=== PATIENT | male | born 1945 | race Caucasian/White ===

== ENCOUNTER 2019-06-08 08:50 | Inpatient (IN) | payer MEDICARE ==
[~2019-06-08] VITALS: Ht 165.1 cm; Wt 114.4 kg
[2019-06-08] VITALS (9 sets, daily range): BP systolic 114–146; BP diastolic 51–66
[2019-06-08] MEDS ORDERED: ASPI81TA85 PO (09:10)
[2019-06-08] MEDS ORDERED: CHLO125TA PO (09:10)
[2019-06-08] MEDS ORDERED: METF500T4 PO (09:10)
[2019-06-08] MEDS ORDERED: CENT1TAB PO (09:10)
[2019-06-08] MEDS ORDERED: D200CAP3 PO (09:10)
[2019-06-08] MEDS ORDERED: OMEP10CASR PO (09:10)
[2019-06-08] MEDS ORDERED: ROSU40TA4 PO (09:10)
[2019-06-08] MEDS ORDERED: SPIR-10 PO (09:10)
[2019-06-08] MEDS ORDERED: IRON65TA2 PO (09:10)
[2019-06-08] MEDS ORDERED: VITA500C24 PO (09:10)
[2019-06-08] MEDS ORDERED: CARV6.25 PO (09:10)
[2019-06-08] MEDS ORDERED: COQ-100C5 PO (09:10)
[2019-06-08] MEDS ORDERED: LOSA100T50 PO (09:10)
--- NOTE | 2019-06-08 09:31 | REP ---
Clinical: Chest pain . Comparison: 04/26/2010 . Findings: The mediastinum and cardiac silhouette are stable and cardiomegaly along with prior sternotomy and CABG again noted. The lung herbert are clear without acute consolidation, effusion, or pneumothorax. Skeletal structures are intact. Impression: No acute cardiopulmonary process appreciated. Electronically Signed by Slick Pérez MD 06/08/2019 09:23 A
[2019-06-08 09:39] LABS: BASO % 0.3 % (0.0-1.0); EOS # 0.1 10^3/uL (0.0-0.5); HEMATOCRIT 41.8 % (42.0-52.0); HEMOGLOBIN 14.4 g/dl (13.5-17.5); LYMPH # 1.8 10^3/uL (1.5-5.0); LYMPH % 14.6 % (24.0-44.0); MEAN CORPUSCULAR HEMOGLOBIN 34.5 pg (27.0-33.0); MEAN CORPUSCULAR HGB CONC 34.4 g/dl (32.0-36.5); MEAN CORPUSCULAR VOLUME 100.2 fl (80.0-96.0); MONO # 0.8 10^3/uL (0.0-0.8); MONO % 6.8 % (0.0-5.0); NEUTROPHILS # 9.2 10^3/uL (1.5-8.5); PLATELET COUNT, AUTOMATED 179 10^3/uL (150-450); RED BLOOD COUNT 4.17 10^6/uL (4.30-6.10)
[2019-06-08 09:50] LABS: INR 1.05; PARTIAL THROMBOPLASTIN TIME 28.5 SECONDS (25.0-38.4); PROTHROMBIN TIME 13.4 SECONDS (11.8-14.0)
[2019-06-08] MEDS ORDERED: LANTINJ4 SC (10:00)
[2019-06-08] MEDS ORDERED: OMEP20CA4 PO (10:00)
[2019-06-08] MEDS ORDERED: INSUH10VL SC (10:00)
[2019-06-08] MEDS ORDERED: GLUCOSE 4 GM CHEW TABLET PO PRN (10:30)
[2019-06-08] MEDS ORDERED: GLUCAGON FOR INJ 1 MG VIAL (J1610) SC PRN (10:30)
[2019-06-08] MEDS ORDERED: DEXTROSE 50% 50 ML SYRINGE IV PRN (10:30)
[2019-06-08] MEDS ORDERED: HEPARIN SOD (PORCINE) 5000 UNITS/ML VIAL SC SCH (10:30)
[2019-06-08 10:32] LABS: ALBUMIN 3.4 GM/DL (3.2-5.2); ALT/SGPT 111 U/L (12-78); BILIRUBIN,DIRECT 0.5 MG/DL (0.0-0.2); BILIRUBIN,TOTAL 1.2 MG/DL (0.2-1.0); CK-MB VALUE MASS < 1.0 NG/ML (<3.6); CPK CREATINE PHOSPHOKINASE 56 U/L (39-308); FREE T4 1.12 NG/DL (0.76-1.46); LIPASE 56 U/L (73-393); MAGNESIUM LEVEL 2.1 MG/DL (1.8-2.4); TOTAL PROTEIN 6.5 GM/DL (6.4-8.2); TROPONIN I 0.02 NG/ML (< 0.10)
[2019-06-08] MEDS ORDERED: VANCOMYCIN 1000 MG/20 ML VIAL (J3370) As Ordered ONE ×2 (10:47→14:31)
[2019-06-08] MEDS ORDERED: VANCOMYCIN HCL 1,000 MG, VIAL MATE ADAPTER 1 EACH in D5W 250 ML IV ONE (11:00)
--- NOTE | 2019-06-08 11:26 | HPEPDOC ---
General Date of Admission Jun 08, 2019 at 10:23 Date of Service: Jun 08, 2019 Attending Physician: DENNIS FIERRO DO Chief Complaint The patient is a 74-year-old male admitted with a reason for visit of Third Degree Av Block. 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 Patient stated that 2 days ago he started feeling profound weakness, lightheadedness. He didn't have dizziness, chest pain, any muscle pain. In the emergency room patient was found to have bradycardia with heart rate of 30 and 3d degree heart block. Patient was consulted by woods manager, who planned emergent pacemaker placement. Home Medications Scheduled Ascorbic Acid (Vitamin C) 500 Mg Capsule, 500 MG PO QHS, (Reported) Aspirin (Aspir 81) 81 Mg Tablet.dr, 81 MG PO DAILY, (Reported) Carvedilol (Carvedilol) 6.25 Mg Tablet, 6.25 MG PO BID, (Reported) Chlorthalidone (Chlorthalidone) 25 Mg Tablet, 25 MG PO DAILY, (Reported) Cholecalciferol (Vitamin D3) (Vitamin D3) 2,000 Unit Capsule, 2,000 UNIT PO QHS, (Reported) Ferrous Sulfate (Iron) 325 Mg Tablet, 325 MG PO QHS, (Reported) Insulin Glargine,Hum.rec.anlog (Lantus Solostar) 100 Unit/1 Ml Insuln.pen, 78 UNITS SC DAILY, (Reported) Insulin Human Lispro (Novolog) 100 Unit/1 Ml Vial, 1 DOSE SC AC, (Reported) PER SLIDING SCALE Losartan Potassium (Losartan Potassium) 100 Mg Tablet, 100 MG PO QHS, (Reported) Metformin HCl (Metformin HCl ER) 500 Mg Tab.er.24h, 1,000 MG PO BIDWM, (Reported) Multivit-Min/FA/Lycopen/Lutein (Centrum Silver Tablet) 1 Each Tablet, 1 TAB PO BID, (Reported) Omeprazole (Omeprazole) 20 Mg Capsule.dr, 20 MG PO DAILY, (Reported) Rosuvastatin Calcium (Rosuvastatin Calcium) 40 Mg Tablet, 40 MG PO QHS, (Report ed) Spironolactone (Spironolactone) 25 Mg Tablet, 25 MG PO DAILY, (Reported) Ubidecarenone (Coq-10) 100 Mg Capsule, 100 MG PO DAILY, (Reported) Allergies Coded Allergies: Penicillins (Verified Allergy, Unknown, rash, 06/08/19) Past Medical History Medical History Right bundle-branch block, left fascicular block, CABG in 2008, hypertension, COPD, diabetes mellitus type 2 Surgical History CABG in 2008 Family History Father from pancreatic cancer, mother had COPD Social History * Smoker: former Smoker Alcohol: occationally Drugs: denies Psychosocial History: No pertinent psych hx A-FIB/CHADSVASC A-FIB History Current/History of A-Fib/PAF?: No Current PO Anticoag Therapy: No Review of Systems Constitutional: Reports: Weakness Eyes: Denies: Pain, Vision change ENT: Denies: Head Aches, Ear Pain, Dysphagia Skin: Denies: Rash, Lesions Pulmonary: Denies: Dyspnea, Cough Cardiovascular: Reports: Lt Headedness; Denies: Chest Pain, Palpitations Gastrointestinal: Denies: Nausea, Vomiting Genitourinary: Denies: Dysuria, Frequency Hematologic: Denies: Bruising, Bleeding Excessively Endocrine: Denies: Polydipsia, Polyphagia Musculoskeletal: Denies: Neck Pain, Back Pain Neurological: Denies: Weakness, Numbness Psych: Reports: Mood Normal Physical Examination General Exam: Positive: Alert, Cooperative Eye Exam: Positive: PERRLA, Conjunctiva & lids normal ENT Exam: Positive: Atraumatic, Mucous membr. moist/pink Neck Exam: Positive: Supple; Negative: JVD Chest Exam: Positive: Clear to auscultation, Diminished Heart Exam: Positive: Bradycardic, Irregular Rhythm Telemetry: Positive: Bradycardia, AV Block Abdomen Exam: Positive: Normal bowel sounds Extremity Exam: Negative: Clubbing, Cyanosis Skin Exam: Negative: Nl turgor and temperature Neuro Exam: Positive: Strength at 5/5 X4 ext Psych Exam: Positive: Mental status NL Vital Signs Vital Signs Date Time Temp Pulse Resp B/P (MAP) Pulse Ox O2 Delivery O2 Flow Rate FiO2 06/08/19 10:35 32 92 06/08/19 10:16 137/57 (83) 06/08/19 09:29 Room Air 06/08/19 09:00 22 06/08/19 08:51 97.0 Laboratory Data Labs 24H Laboratory Tests 2 06/08/19 09:09: POC Glucose (Misc Panel) 156H, POC Sodium (Misc Panel) 139, POC Potassium (Misc Panel) 4.4, POC Chloride (Misc Panel) 107, POC Total CO2 (Misc Panel) 20.0L, POC Blood Urea Nitrogen (Misc Panel 42H, POC Ionized Calcium (Misc Panel) 4.7, POC Creatinine (Misc Panel) 1.4H, POC Hematocrit (Misc Panel) 41.0 06/08/19 09:14: Immature Granulocyte % (Auto) 0.3, White Blood Count 12.0H, Red Blood Count 4.17L, Hemoglobin 14.4, Hematocrit 41.8L, Mean Corpuscular Volume 100.2H, Mean Corpuscular Hemoglobin 34.5H, Mean Corpuscular Hemoglobin Concent 34.4, Red Cell Distribution Width 12.9, Platelet Count 179, Neutrophils (%) (Auto) 77.0H, Lymphocytes (%) (Auto) 14.6L, Monocytes (%) (Auto) 6.8H, Eosinophils (%) (Auto) 1.0, Basophils (%) (Auto) 0.3, Neutrophils # (Auto) 9.2H, Lymphocytes # (Auto) 1.8, Monocytes # (Auto) 0.8, Eosinophils # (Auto) 0.1, Basophils # (Auto) 0.0, Nucleated Red Blood Cells % (auto) 0.0, Prothrombin Time 13.4, Prothromb Time International Ratio 1.05, Activated Partial Thromboplast Time 28.5, Magnesium Level 2.1, Aspartate Amino Transf (AST/SGOT) 71H, Alanine Aminotransferase (ALT/SGPT) 111H, Alkaline Phosphatase 45, Total Bilirubin 1.2H, Direct Bilirubin 0.5H, Total Creatine Kinase 56, Creatine Kinase MB < 1.0, Creatine Kinase MB Relative Index 0.00, Troponin I 0.02, Total Protein 6.5, Albumin 3.4, Albumin/Globulin Ratio 1.10, Lipase 56L, Thyroid Stimulating Hormone (TSH) 2.210, Free Thyroxine 1.12 06/08/19 10:43: CBC/BMP Laboratory Tests 06/08/19 09:14 Red Blood Count 4.17 L, Mean Corpuscular Volume 100.2 H, Mean Corpuscular Hemoglobin 34.5 H, Mean Corpuscular Hemoglobin Concent 34.4, Red Cell Distribution Width 12.9, Neutrophils (%) (Auto) 77.0 H, Lymphocytes (%) (Auto) 14.6 L, Monocytes (%) (Auto) 6.8 H, Eosinophils (%) (Auto) 1.0, Basophils (%) (A uto) 0.3, Neutrophils # (Auto) 9.2 H, Lymphocytes # (Auto) 1.8, Monocytes # (Auto) 0.8, Eosinophils # (Auto) 0.1, Basophils # (Auto) 0.0 Assessment/Plan Patient is 74 years old male with past medical history of asthma, coronary 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 Patient stated that 2 days ago he started feeling profound weakness, lightheadedness. He didn't have dizziness, chest pain, any muscle pain. In the emergency room patient was found to have bradycardia with heart rate of 30 and 3d degree heart block. Patient was consulted by woods manager, who planned emergent pacemaker placement. Problems (1) Third degree AV block Status: Acute Problem Text: Pacemaker placement today Curing Machine Operator team on board Continue cardioprotective medications Telemetry, TSH (2) Symptomatic bradycardia Status: Acute Problem Text: Pacemaker placement today (3) Diabetes mellitus Problem Text: Continue insulin detemir Insulin sliding scale Diabetes diet Plan / VTE VTE Prophylaxis Ordered?: Yes DENNIS FIERRO DO Jun 08, 2019 11:26
[2019-06-08] MEDS ORDERED: NS 250 ML IV ONE (11:45)
--- NOTE | 2019-06-08 12:47 | CR ---
DATE OF CONSULTATION: 06/08/2019 REFERRING PHYSICIAN: Dr. Carla Morgan. REASON FOR CONSULTATION: Complete heart block. HISTORY OF PRESENT ILLNESS: Mr. Vivek Ridley is a very pleasant 74-year-old morbidly obese man with multiple medial problems. He is known to have right bundle branch block with left anterior block, coronary disease with prior remote NSTEMI, status-post CABG times three 07/2009, systemic hypertension, type 2 diabetes on Insulin, hypercholesterolemia, anemia, non-rheumatic mild aortic stenosis. Since Saturday of last week, he has been noticing exertional fatigue and exertional shortness of breath with walking 10 feet. No orthopnea or PND. No lightheadedness. No presyncope or syncope No pain, pressure, tightness, squeezing or heaviness with or without exertion. No peripheral edema. No claudication. No palpitations. He presents to the emergency room this morning to get checked out because he was continuing to feel unwell. He was noted to be in complete heart block with heart rate in the low 30's. ADVERSE DRUG REACTIONS: Penicillin (rash). MEDICATIONS PRIOR TO ADMISSION: Ascorbic acid 500 mg at bedtime, aspirin 81 mg daily, carvedilol 3.25 mg twice a day, chlorthalidone 25 mg daily, vitamin D 2,000 units at bedtime, ferrous sulfate 325 mg at bedtime, Lantus SoloStar 78 units subcu daily, NovoLog insulin before meals per sliding scale, losartan 100 mg at bedtime, metformin extended release 1,000 mg twice a day, multivitamin 1 daily, omeprazole 20 mg daily, Rosuvastatin 40 mg at bedtime, Spironolactone 27 mg daily, Coenzyme Q10 100 mg daily. PAST MEDICAL AND SURGICAL HISTORY: Right bundle branch block with left anterior vesicular block, CAD, remote NSTEMI, CABG times three 08/02/2009 with ATWOOD to the LAD vein graft to first diagonal, vein graft to first obtuse marginal. Morbid obesity, systemic hypertension, type 2 diabetes on Insulin, hypercholesterolemia, anemia, degenerative calcific aortic valve disease with mild aortic stenosis (non-rheumatic), asthma, osteoarthritis. Echocardiogram Doppler 09/06/2017 showed degenerative, calcific aortic valve disease with mild aortic stenosis and no aortic regurgitation. There is very mild mitral annular calcification. Mild concentric left ventricular hypertrophy with LVEF of 65%. Grade 1 LV diastolic dysfunction. Mild left atrial dilatation. Myocardial profusion study 09/2016 was normal. SOCIAL HISTORY: . Resides in [place]. He is retired. No alcohol, nonsmoker. No illicit drugs. FAMILY HISTORY: Family history not contributory due to the patient's advanced age. REVIEW OF SYSTEMS: 12 point review of systems is negative other than what was listed in the HPI and past medical history above. PHYSICAL EXAMINATION: Blood pressure 194/80 left arm supine, pulse 32 (regular), respiratory rate 18, oxygen saturation 95% on room air. Height 65 inches, weight 114.3 kg, BMI 41.9. Morbidly obese man not in any respiratory or distress. No facial or skeletal deformities. Multiple missing teeth and presence of dental fillings. Oral mucosa is moist and without pallor or stenosis. Jugular venous pulsations were 5 cm. Trachea is midline. No palpable thyroid. No clubbing or cyanosis. No skin lesions, skin pallor or icterus. Oriented to person, place and time. Mood and affect is normal. Curvature of the spine is normal. Gait not appropriately tested as the patient is current in complete heart block. Gross motor strength and tone normal. No muscle atrophy. Respiratory expansion effort was good. No crackles or wheezes. No dullness to percussion. Midline sternal scar present and well healed. No palpable heart sounds. First and second heart sounds were reduced in intensity. Grade 1 systolic ejection murmur of the second intercostal interspace without radiation. No diastolic murmurs. No S3 or S4. No palpable abdominal aorta but difficult to palpate due to abdominal obesity. Femoral pulse normal. Pedal pulse normal. No varicose veins. 1-2 mm of edema was present at mid tibia level and distal tibial level bilaterally. Abdomen was obese, soft and nontender with normal bowel sounds. No hepatosplenomegaly or organomegaly. Stool for occult blood not presently indicated. INVESTIGATIONS: Electrocardiogram 06/08/2019 shows underlying sinus rhythm with complete heart block with right bundle branch block with left anterior vesicular block. LAB WORK: 06/08/2019 was reviewed: WBC 12.0, hemoglobin 14.4, hematocrit 41.8, platelets 479, PT/INR 1.05, blood chemistry all currently pending. I have independently visualized the patient's portable upright AP chest x-ray acquired 06/08/2019 at 9:08 am, it shows cardiomegaly despite the portable technique. Midline sternal wires are present. Some surgical clips over the heart consistent with status-post CABG. No hyperinflation. No pulmonary vascular redistribution. No interstitial or alveolar edema. No pleural effusions. ASSESSMENT AND PLAN: 1. Symptomatic complete heart block. Patient has a pre-existing right bundle branch block with left anterior vesicular block. He meets criteria for implantation of a permanent dual-chamber pacemaker. The plan will be to proceed to the operating room for a permanent dual-chamber pacemaker today. Pacemaker implantation was explained to the patient. The alternatives to no pacemaker was explained to the patient (increased risk for sudden cardiac and syncope and other consequences). Risks of pacemaker implantation were explained to the patient including bleeding but not all inclusive: Infection (1%), bleeding, pneumothorax (1%), adverse drug reaction, bleeding, poor wound healing including wound dehiscence, cardiac dysrhythmias, lead dislodgment, and cardiac perforation with cardiac tamponade ( 12/999). Patient is agreeable to proceed with the pacemaker and signed the consent form. The plan will be to proceed to the operating room when the OR becomes available today for implantation of a permanent dual-chamber pacemaker. 2. Right bundle branch block with left anterior vesicular block. As noted above the patient has now evolved to complete heart block and will proceed with implantation of a permanent dual chamber pacemaker. Carvedilol will be held for now but can be restarted postoperatively following pacemaker implantation. 3. CAD. Patient is status-post NSTEMI many years ago. He is status-post CABG times three 07/2009. He is not having any anginal symptoms. His cardial nuclear stress test from 10/01/2016 showed normal perfusion. It showed normal LV systolic function. Continue aspirin and angiotensin receptor cherrie. Continue statin therapy. 4. Old NSTEMI see category above. 5. Systemic hypertension. We will adjust blood pressure medications as needed once the patient has a permanent pacemaker . Continue ARB. Continue spironolactone, carvedilol could be restarted postoperatively. 6. Hypercholesterolemia. Continue statin therapy. Recommend a Dash diet. 7. Morbid obesity. Recommend a Dash diet. 8. Status CABG times July 2009. 9. Type 2 diabetes on Insulin. The hospitalist service will look after the patient's diabetes medications. 10. Anemia. Patient will continue on iron supplement. 11. Non-rheumatic aortic valve stenosis (mild). 12. His last echocardiogram Doppler was from 09/2017 which showed mild aortic stenosis at that time. He should have a followup echocardiogram Doppler sometimes in 2019.
[2019-06-08] MEDS ORDERED: LIDOCAINE 1% SDV INJ 30 ML VIAL As Ordered ONE (13:54)
[2019-06-08] MEDS ORDERED: ISOVUE-300 61% 50ML VIAL (Q9967) As Ordered ONE (13:54)
[2019-06-08] MEDS ORDERED: MIDAZOLAM INJ 2 MG/2 ML VIAL (J2250) As Ordered ONE (14:06)
[2019-06-08] MEDS ORDERED: fentaNYL 100 MCG/2 ML INJECTION (J3010) As Ordered ONE (14:06)
[2019-06-08] MEDS ORDERED: PROPOFOL 200 MG/20 ML VIAL As Ordered ONE ×2 (15:31→16:05)
[2019-06-08] MEDS ORDERED: ePHEDrine SULFATE 25 MG/5 ML(5MG/ML) SYRINGE As Ordered ONE (15:32)
[2019-06-08] MEDS ORDERED: PHENYLephrine HCL 500 MCG/5 ML (100MCG/ML) SYRINGE (J2370) As Ordered ONE (15:35)
[2019-06-08] MEDS ORDERED: MUPIROCIN 2% OINT 22 GM TUBE As Ordered ONE (16:16)
--- NOTE | 2019-06-08 16:40 | REP ---
Clinical: Status post pacemaker. Technique: Intraoperative fluoroscopic imaging using portable C-arm technique. Findings: Single fluoroscopic image demonstrates the patient to be status post dual lead pacemaker placement. Total fluoroscopic time 7 minutes 38 seconds. Impression: Dual lead pacemaker placement in seemingly satisfactory position. Electronically Signed by Slick Pérez MD 06/08/2019 04:31 P
[2019-06-08] MEDS ORDERED: ONDANSETRON 4MG/2ML VIAL (J2405) IV PRN (16:45)
[2019-06-08] MEDS ORDERED: LR 1,000 ML IV SCH (16:45)
[2019-06-08] MEDS ORDERED: fentaNYL 100 MCG/2 ML INJECTION (J3010) IV PRN (16:45)
--- NOTE | 2019-06-08 17:08 | REP ---
Clinical: Pacemaker placement. Comparison: 06/08/2019. Findings: Dual lead pacemaker with leads in the right atrium and ventricle. Evidence for prior sternotomy and CABG. The mediastinum and cardiac silhouette are stable and within normal limits for portable technique. The lung herbert are clear without acute consolidation, effusion, or pneumothorax. Skeletal structures are intact. Impression: No acute cardiopulmonary process appreciated. No pneumothorax. Electronically Signed by Slick Pérez MD 06/08/2019 05:00 P
[2019-06-08] MEDS: HumaLOG INSULIN (NovoLOG) PER UNIT SC SCH ×2 (17:24→17:30)
[2019-06-08] MEDS ORDERED: SLF 3 ML SYR IV PRN (18:30)
[2019-06-08] MEDS: SLF 3 ML SYR IV SCH (20:41)
[2019-06-08] MEDS: MULTIVITAMINS/MINERALS THERAP 1 TAB PO SCH (20:41)
[2019-06-08] MEDS ORDERED: ACETAMINOPHEN TAB 650MG DOSE (2X325MG) PO PRN (20:45)
[2019-06-08] MEDS ORDERED: ROSUVASTATIN 10 MG TAB (CRESTOR) PO SCH (21:00)
[2019-06-08] MEDS ORDERED: LOSARTAN 50 MG TAB PO SCH (21:00)
[2019-06-08] MEDS ORDERED: ASCORBIC ACID 500 MG TAB PO SCH (21:00)
[2019-06-08] MEDS ORDERED: CARVedilol 6.25 MG TAB PO SCH (21:00)
[2019-06-08] MEDS ORDERED: VITAMIN D 1,000 INTERNATIONAL UNITS TABLET PO SCH (21:00)
[2019-06-08] MEDS ORDERED: FERROUS SULFATE 325MG TAB PO SCH (21:00)
[2019-06-08 21:17] LABS: HEMATOCRIT 37.5 % (42.0-52.0); HEMOGLOBIN 12.9 g/dl (13.5-17.5); MEAN CORPUSCULAR HEMOGLOBIN 33.7 pg (27.0-33.0); MEAN CORPUSCULAR HGB CONC 34.4 g/dl (32.0-36.5); MEAN CORPUSCULAR VOLUME 97.9 fl (80.0-96.0); PLATELET COUNT, AUTOMATED 140 10^3/uL (150-450); RED BLOOD COUNT 3.83 10^6/uL (4.30-6.10); WHITE BLOOD COUNT 9.7 10^3/uL (4.0-10.0)
[2019-06-08 21:36] LABS: ALBUMIN 3.1 GM/DL (3.2-5.2); ALT/SGPT 86 U/L (12-78); BILIRUBIN,TOTAL 1.2 MG/DL (0.2-1.0); BLOOD UREA NITROGEN 42 MG/DL (7-18); CALCIUM LEVEL 8.5 MG/DL (8.8-10.2); CARBON DIOXIDE LEVEL 23 MEQ/L (21-32); CHLORIDE LEVEL 109 MEQ/L (98-107); CREATININE FOR GFR 1.19 MG/DL (0.70-1.30); GLOMERULAR FILTRATION RATE > 60.0 (>42); GLUCOSE, FASTING 101 MG/DL (70-100); SODIUM LEVEL 140 MEQ/L (136-145); TOTAL PROTEIN 6.1 GM/DL (6.4-8.2)
--- NOTE | 2019-06-08 21:52 | ECGEPIP ---
[facility] Test Date: 2019-06-08 Pat Name: JOSHUA WANG Department: Room: Gender: Male Lab Nurse: GURDEEP : 1945 Requested By: Todd Smith Order Number: [id number] Reading MD: Todd Smith Measurements Intervals [place] Rate: 76 P: 60 AR: 182 QRS: -80 QRSD: 162 T: 64 QT: 452 QTc: 510 Interpretive Statements Sinus rhythm with PACs, P-synchronous ventricular paced rhythm Pacing new in comparison to 06/08/2019 at 9:03 AM. Electronically Signed on 06-08-2019 21:52:04 EDT by Todd Smith
--- NOTE | 2019-06-09 00:35 | ECGEPIP ---
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
[2019-06-09 04:00] VITALS: BP 115/56
[2019-06-09] MEDS: SLF 3 ML SYR IV SCH ×2 (05:00→15:08)
[2019-06-09 05:44] LABS: HEMATOCRIT 37.2 % (42.0-52.0); HEMOGLOBIN 12.7 g/dl (13.5-17.5); MEAN CORPUSCULAR HEMOGLOBIN 33.3 pg (27.0-33.0); MEAN CORPUSCULAR HGB CONC 34.1 g/dl (32.0-36.5); MEAN CORPUSCULAR VOLUME 97.6 fl (80.0-96.0); PLATELET COUNT, AUTOMATED 138 10^3/uL (150-450); RED BLOOD COUNT 3.81 10^6/uL (4.30-6.10)
[2019-06-09 06:06] LABS: BLOOD UREA NITROGEN 32 MG/DL (7-18); CALCIUM LEVEL 9.1 MG/DL (8.8-10.2); CARBON DIOXIDE LEVEL 23 MEQ/L (21-32); CHLORIDE LEVEL 109 MEQ/L (98-107); CREATININE FOR GFR 1.06 MG/DL (0.70-1.30); GLOMERULAR FILTRATION RATE > 60.0 (>42); GLUCOSE, FASTING 65 MG/DL (70-100); MAGNESIUM LEVEL 1.8 MG/DL (1.8-2.4); POTASSIUM SERUM 3.9 MEQ/L (3.5-5.1); SODIUM LEVEL 140 MEQ/L (136-145)
--- NOTE | 2019-06-09 06:51 | RO ---
DATE OF PROCEDURE: 06/08/2019 PREOPERATIVE DIAGNOSIS: Complete heart block. POSTOPERATIVE DIAGNOSIS: Complete heart block. FINDINGS: Complete heart block. PROCEDURE PERFORMED: Implantation of a permanent dual chamber pacemaker ([employer]). SURGEON: Todd Smith MD FUNERAL SERVICE LICENSEE: None. ANESTHESIA: 1% lidocaine local, monitored anesthetic care. SPECIMENS: None. ESTIMATED BLOOD LOSS: Less than 10 mL. BLOOD PRODUCTS REPLACED: None. DRAINS: None. COMPLICATIONS: None. PROCEDURE DESCRIPTION: The patient was prepped and draped over the left pectoral region. 3M Ioban film was applied. Lidocaine 1% was used for local anesthetic. A subclavian venogram was performed in real time to assist with percutaneous vein access to the extrathoracic portion of the left subclavian vein. This was performed using a total volume of 20 mL of a mixture consisting of 5 parts x-ray contrast to 1 part normal saline which was injected via a peripheral vein in the left forearm. This vein access was obtained using a micropuncture needle. This was then guidewire exchanged for a guidewire that came with one of the 8 Cymraes sheaths. Next, an incision was made with a Peak Plasma blade approximately 3 inches in length and 1 cm below the skin entry site of the guidewire. The Peak Plasma blade was used to get through the fatty layer and through the fibrous Edna fascia. I then performed the pacemaker pocket in a caudal direction using blunt dissection using two fingers to separate the prepectoral fascia from the Edna fascia. The guidewire was then pulled through the skin into the incision site. Next, I took another micropuncture needle and obtained a separate venous access at the level of the pectoral muscle more lateral to the first guidewire using the first guidewire as a fluoroscopic guide. This was then guidewire exchanged for a guidewire that came with the other 8 Cymraes sheath. Next, the 8 Cymraes sheath introducer was placed from the more lateral of the guidewires and was used for vein access for the right ventricle lead. The right ventricle lead was placed in the right ventricle probably somewhere along the ventricular septum or possibly the right ventricle anterior free wall and it was secured with a total of 8 turns. This position was found to be electrically and anatomically satisfactory. The 8 Cymraes sheath was then broken apart and removed and the ventricle lead was secured to the pectoral muscle using three individual sutures consisting of #0 Ethibond. Next, the other 8 Cymraes sheath was placed over the medial of the guidewires and was used for vein access for the right atrial lead. The right atrial lead was placed under fluoroscopic guidance using the help of a preformed J-stylet and laced in what was probably a remnant of the right atrial appendage. It was secured with a total of 9 turns. This position was found to be electrically and anatomically satisfactory. The 8 Cymraes sheath was peeled apart and removed and the atrial lead was secured using the supplied tie down sleeve using two individual sutures consisting of #0 Ethibond. Next, another #0 Ethibond suture was placed to the pectoral muscle to serve as the tie down for the pacemaker pulse generator. I then took a medium sized TYRX envelope and cut it to 6 pieces which was placed into the floor of the pacemaker pocket. Next, the internal pins of the pacemaker leads were plugged into their respective ports of the header of the pacemaker pulse generator. Each one was secured by tightening the set screws with the hex screwdriver. The excess lead material was then coiled underneath the pacemaker pulse generator and placed along with the pacemaker pulse generator into the pacemaker pocket with the excess lead material below and pacemaker pulse generator on top. The pacemaker pulse generator was then secured to the pectoral muscle using the previously placed #0 Ethibond suture. The deep layer was closed using individual sutures consisting of #2-0 Vicryl. The skin was closed using sky. The patient tolerated the procedure well without any immediate complications. The pacemaker pulse generator implanted was a [employer] Assurity MRI with model [id number], with serial number [id number]. The right atrial lead implanted was a [employer] Tendril MRI with model [id number], 52 cm, with serial number [id number]. Testing with the PSA analyzer for the right atrial lead showed capture threshold of 1.9 volts at 0.4 ms with P wave of 3.1 mV and lead impedance of 420 ohms. Device base testing in the operating room for the right atrial lead showed capture threshold of 0.5 volts at 0.4 ms with lead impedance of 550 ohms and P wave amplitude of 4.6 mV. The right ventricle lead implanted was a [employer] model [id number], 52 cm, with serial [id number]. Final testing in the operating room for the right ventricle lead in bipolar configuration with the PSA analyzer showed capture threshold of 0.6 volts at 0.4 ms with R wave amplitude of 4.5 mV and lead impedance of 658 ohms. Device based testing in the operating room for the right ventricle lead showed a capture threshold of 0.75 volts at 0.4 ms with lead impedance of 680 ohms and R wave could not be measured because the patient was pacemaker dependent.
[2019-06-09] MEDS: HumaLOG INSULIN (NovoLOG) PER UNIT SC SCH ×3 (07:30→17:33)
[2019-06-09 08:00] VITALS: BP 115/78
--- NOTE | 2019-06-09 08:33 | REP ---
Clinical: Status post pacemaker placement. Comparison: 06/08/2019. Findings: Evidence of prior sternotomy and CABG. The cardiac silhouette is stable. Pacemaker in stable, satisfactory position. No associated pneumothorax. Chronic changes at the right base again noted. No focal consolidation. No effusion. Skeletal structures intact. Impression: No pneumothorax. Electronically Signed by Slick Pérez MD 06/09/2019 08:25 A
[2019-06-09] MEDS: MULTIVITAMINS/MINERALS THERAP 1 TAB PO SCH (08:34)
[2019-06-09] MEDS ORDERED: OMEPRAZOLE 20 MG CAP PO SCH (09:00)
[2019-06-09] MEDS ORDERED: LEVEMIR (INSULIN DETEMIR) 1 UNITS/0.01ML SC SCH (09:00)
[2019-06-09] MEDS ORDERED: ASPIRIN 81 MG ENTERIC TAB PO SCH (09:00)
[2019-06-09] MEDS ORDERED: SPIRONOLACTONE 25 MG TAB PO SCH (09:00)
[2019-06-09] MEDS ORDERED: CHLORTHALIDONE 25 MG TAB PO SCH (09:00)
[2019-06-09] MEDS ORDERED: LEVEMIR (INSULIN DETEMIR) 1 UNITS/0.01ML SC ONE (11:00)
[2019-06-09 16:00] VITALS: BP 135/60
--- NOTE | 2019-06-09 20:20 | DS.PDOC ---
Discharge Summary General Date of Admission Jun 08, 2019 at 10:23 Date of Discharge 06/09/19 Attending Physician: DENNIS FIERRO DO Discharge Summary PROCEDURES PERFORMED DURING STAY: Pacemaker placement ADMITTING DIAGNOSES: Third-degree heart block Bradycardia Diabetes mellitus DISCHARGE DIAGNOSES: Status post pacemaker placement Third-degree heart block Bradycardia Diabetes mellitus COMPLICATIONS/CHIEF COMPLAINT: Third Degree Av Block. HISTORY OF PRESENT ILLNESS: Patient is 74 years old male with past medical history of asthma, coronary 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 Patient stated that 2 days ago he started feeling profound weakness, lightheadedness. He didn't have dizziness, chest pain, any muscle pain. In the emergency room patient was found to have bradycardia with heart rate of 30 and 3d degree heart block. Patient was consulted by supervisor fusing room, who planned emergent pacemaker placement. HOSPITAL COURSE: Pacemaker was placed on 06/09/19. Postoperative period without any complications. EKG and telemetry showed paced rhythm DISCHARGE MEDICATIONS: Please see below. ALLERGIES: Please see below. PHYSICAL EXAMINATION ON DISCHARGE: VITAL SIGNS: Please see below. General Exam: Positive: Alert, Cooperative Eye Exam: Positive: PERRLA, Conjunctiva & lids normal ENT Exam: Positive: Atraumatic, Mucous membr. moist/pink Neck Exam: Positive: Supple; Negative: JVD Chest Exam: Positive: Clear to auscultation, Diminished Heart Exam: Positive: S1 and S2 Abdomen Exam: Positive: Normal bowel sounds Extremity Exam: Negative: Clubbing, Cyanosis Skin Exam: Negative: Nl turgor and temperature Neuro Exam: Positive: Strength at 5/5 X4 ext Psych Exam: Positive: Mental status NL LABORATORY DATA: Please see below. PROGNOSIS: Favorable ACTIVITY: As tolerated. DIET: Cardiac DISCHARGE PLAN: Follow-up with supervisor fusing room in 1 week DISPOSITION: 01 Home, Self-Care. DISCHARGE INSTRUCTIONS: 1. Cardiac diet ITEMS TO FOLLOWUP ON ON OUTPATIENT: 1. PCP in 3-5 days DISCHARGE CONDITION: Stable TIME SPENT ON DISCHARGE: Greater than 20 minutes. Vital Signs/I&Os Vital Signs Date Time Temp Pulse Resp B/P (MAP) Pulse Ox O2 Delivery O2 Flow Rate FiO2 06/09/19 16:00 97.2 80 18 135/60 (85) 93 2.0 06/08/19 12:05 Room Air I&O- Last 24 Hours up to 6 AM 06/09/19 05:59 Intake Total 1150 ml Output Total 1950 ml Balance -800 ml Laboratory Data Labs 24H Laboratory Tests 2 06/08/19 20:19: Bedside Glucose (Misc Panel) 97 06/08/19 20:51: Nucleated Red Blood Cells % (auto) 0.0 06/08/19 20:54: Anion Gap 8, Glomerular Filtration Rate > 60.0, Blood Urea Nitrogen 42H, Creatinine 1.19, Sodium Level 140, Potassium Level 4.0, Chloride Level 109H, Carbon Dioxide Level 23, Calcium Level 8.5L, Aspartate Amino Transf (AST/SGOT) 46H, Alanine Aminotransferase (ALT/SGPT) 86H, Alkaline Phosphatase 42L, Total Bilirubin 1.2H, Total Protein 6.1L, Albumin 3.1L, Albumin/Globulin Ratio 1.03 06/09/19 04:55: Nucleated Red Blood Cells % (auto) 0.0, Anion Gap 8, Glomerular Filtration Rate > 60.0, Blood Urea Nitrogen 32H, Creatinine 1.06, Sodium Level 140, Potassium Level 3.9, Chloride Level 109H, Carbon Dioxide Level 23, Calcium Level 9.1, Magnesium Level 1.8 06/09/19 10:46: Bedside Glucose (Misc Panel) 141H 06/09/19 12:14: Bedside Glucose (Misc Panel) 120H 06/09/19 17:14: Bedside Glucose (Misc Panel) 149H CBC/BMP Laboratory Tests 06/08/19 20:51 Red Blood Count 3.83 L, Mean Corpuscular Volume 97.9 H, Mean Corpuscular Hemoglobin 33.7 H, Mean Corpuscular Hemoglobin Concent 34.4, Red Cell Distribution Width 12.9 06/08/19 20:54 Calcium Level 8.5 L, Aspartate Amino Transf (AST/SGOT) 46 H, Alanine Aminotransferase (ALT/SGPT) 86 H, Alkaline Phosphatase 42 L, Total Bilirubin 1.2 H, Total Protein 6.1 L, Albumin 3.1 L 06/09/19 04:55 Red Blood Count 3.81 L, Mean Corpuscular Volume 97.6 H, Mean Corpuscular Hemoglobin 33.3 H, Mean Corpuscular Hemoglobin Concent 34.1, Red Cell Distribution Width 12.7, Calcium Level 9.1 FSBS Laboratory Tests Test 06/08/19 20:19 06/09/19 10:46 06/09/19 12:14 06/09/19 17:14 Range/Units Bedside Glucose (Misc Panel) 97 141 120 149 83-110 MG/DL Discharge Medications Scheduled Ascorbic Acid (Vitamin C) 500 Mg Capsule, 500 MG PO QHS, (Reported) Aspirin (Aspir 81) 81 Mg Tablet.dr, 81 MG PO DAILY, (Reported) Chlorthalidone (Chlorthalidone) 25 Mg Tablet, 25 MG PO DAILY, (Reported) Cholecalciferol (Vitamin D3) (Vitamin D3) 2,000 Unit Capsule, 2,000 UNIT PO QHS, (Reported) Ferrous Sulfate (Iron) 325 Mg Tablet, 325 MG PO QHS, (Reported) Insulin Glargine,Hum.rec.anlog (Lantus Solostar) 100 Unit/1 Ml Insuln.pen, 78 UNITS SC DAILY, (Reported) Insulin Human Lispro (Novolog) 100 Unit/1 Ml Vial, 1 DOSE SC AC, (Reported) PER SLIDING SCALE Losartan Potassium (Losartan Potassium) 100 Mg Tablet, 100 MG PO QHS, (Reported) Metformin HCl (Metformin HCl ER) 500 Mg Tab.er.24h, 1,000 MG PO BIDWM, (Reported) Multivit-Min/FA/Lycopen/Lutein (Centrum Silver Tablet) 1 Each Tablet, 1 TAB PO BID, (Reported) Omeprazole (Omeprazole) 20 Mg Capsule.dr, 20 MG PO DAILY, (Reported) Rosuvastatin Calcium (Rosuvastatin Calcium) 40 Mg Tablet, 40 MG PO QHS, (Reported) Spironolactone (Spironolactone) 25 Mg Tablet, 25 MG PO DAILY, (Reported) Ubidecarenone (Coq-10) 100 Mg Capsule, 100 MG PO DAILY, (Reported) Allergies Coded Allergies: Penicillins (Verified Allergy, Unknown, rash, 06/08/19) DENNIS FIERRO DO Jun 09, 2019 20:20
--- NOTE | 2019-06-10 20:27 | ECGEPIP ---
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
--- NOTE | 2019-06-10 20:33 | ECGEPIP ---
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
[2019-06-11 00:06] LABS: Lyme Disease IgG/IgM Antibodie <0.91 ISR (0.00-0.90); Lyme Disease IgM Ab Quantitati <0.80 index (0.00-0.79)
== END 2019-06-09 18:16 | disposition home or self-care (01) | DRG 243 ==
LOC: M ED 08:50 → M ED INP 10:23 → M PCU 17:09
PROVIDERS: ADMIT Internal Medicine; ATTEND Internal Medicine
PROC: 02H63JZ Insertion of Pacemaker Lead into Right Atrium, Percutaneous Approach (ICD-10-PCS; 2019-06-08)
PROC: 02HK3JZ Insertion of Pacemaker Lead into Right Ventricle, Percutaneous Approach (ICD-10-PCS; 2019-06-08)
PROC: 0JH606Z Insertion of Pacemaker, Dual Chamber into Chest Subcutaneous Tissue and Fascia, Open Approach (ICD-10-PCS; principal; 2019-06-08 10:01)
DX: I44.2 Atrioventricular block, complete (principal); Z68.41 Body mass index [BMI] 40.0-44.9, adult; E66.01 Morbid (severe) obesity due to excess calories; E11.9 Type 2 diabetes mellitus without complications; J45.909 Unspecified asthma, uncomplicated; I25.10 Atherosclerotic heart disease of native coronary artery without angina pectoris; I45.2 Bifascicular block; Z79.82 Long term (current) use of aspirin; Z79.899 Other long term (current) drug therapy; Z88.0 Allergy status to penicillin; Z79.4 Long term (current) use of insulin; Z87.891 Personal history of nicotine dependence; Z95.1 Presence of aortocoronary bypass graft; I25.2 Old myocardial infarction; I35.0 Nonrheumatic aortic (valve) stenosis; E78.00 Pure hypercholesterolemia, unspecified; D64.9 Anemia, unspecified

== ENCOUNTER → 2023-08-20 | Outpatient (CLI) | payer MEDICARE ==
[~2023-08-20] MED LIST: ASPI81TA86 PO; CARV6.25 PO; CENT1TAB PO; CHLO125TA PO; COQ-100C5 PO; D200CAP3 PO; INSUH10VL SC; IRON65TA2 PO; LANTINJ4 SC; LOSA100T46 PO; METF-838 PO; OMEP10CASR PO; OMEP1CAP73 PO; ROSU40TA4 PO; SPIR-10 PO; VITA500C24 PO
[2023-08-20 11:48] LABS: HEMATOCRIT 41.8 % (42.0-52.0); HEMOGLOBIN 14.3 g/dl (13.5-17.5); MEAN CORPUSCULAR HEMOGLOBIN 33.7 pg (27.0-33.0); MEAN CORPUSCULAR HGB CONC 34.2 g/dl (32.0-36.5); MEAN CORPUSCULAR VOLUME 98.6 fl (80.0-96.0); PLATELET COUNT, AUTOMATED 174 10^3/uL (150-450); RED BLOOD COUNT 4.24 10^6/uL (4.30-6.10)
[2023-08-20 12:21] LABS: BLOOD UREA NITROGEN 31 MG/DL (9-23); CALCIUM LEVEL 9.6 MG/DL (8.3-10.6); CARBON DIOXIDE LEVEL 27 MMOL/L (20-31); CHLORIDE LEVEL 104 MMOL/L (98-107); CREATININE FOR GFR 1.23 MG/DL (0.70-1.30); GLOMERULAR FILTRATION RATE > 60.0 (>42); GLUCOSE, FASTING 144 MG/DL (74-106); POTASSIUM SERUM 4.4 MMOL/L (3.5-5.1); SODIUM LEVEL 137 MMOL/L (136-145)
== END ==
LOC: M LAB 11:03
PROVIDERS: ATTEND Internal Medicine
DX: I35.0 Nonrheumatic aortic (valve) stenosis (principal)

== ENCOUNTER → 2023-11-21 | Outpatient (CLI) | payer MEDICARE ==
[2023-11-21 10:53] LABS: HEMOGLOBIN 14.1 g/dl (13.5-17.5); MEAN CORPUSCULAR HEMOGLOBIN 33.3 pg (27.0-33.0); MEAN CORPUSCULAR HGB CONC 34.4 g/dl (32.0-36.5); MEAN CORPUSCULAR VOLUME 96.7 fl (80.0-96.0); PLATELET COUNT, AUTOMATED 154 10^3/uL (150-450); RED BLOOD COUNT 4.24 10^6/uL (4.30-6.10); WHITE BLOOD COUNT 8.3 10^3/uL (4.0-10.0)
[2023-11-21 11:23] LABS: BLOOD UREA NITROGEN 25 MG/DL (9-23); CALCIUM LEVEL 9.9 MG/DL (8.3-10.6); CARBON DIOXIDE LEVEL 26 MMOL/L (20-31); CHLORIDE LEVEL 107 MMOL/L (98-107); CREATININE FOR GFR 1.08 MG/DL (0.70-1.30); GLOMERULAR FILTRATION RATE > 60.0 (>42); GLUCOSE, FASTING 125 MG/DL (74-106); POTASSIUM SERUM 4.2 MMOL/L (3.5-5.1); SODIUM LEVEL 141 MMOL/L (136-145)
== END ==
LOC: M LAB 09:55
PROVIDERS: ATTEND Physician Assistant
DX: I35.0 Nonrheumatic aortic (valve) stenosis (principal)

== ENCOUNTER → 2023-11-25 | Outpatient (CLI) | payer MEDICARE | LOC: M PLAIMG 10:17 | PROVIDERS: ATTEND Physician Assistant | DX: I35.0 Nonrheumatic aortic (valve) stenosis (principal); Z95.4 Presence of other heart-valve replacement ==

== ENCOUNTER → 2024-01-09 | Outpatient (CLI) | payer MEDICARE ==
[~2024-01-09] MED LIST changes: +ISOVUE-370 76% 100ML VIAL As Ordered ONE
== END ==
LOC: M RAD 13:17
PROVIDERS: ATTEND Internal Medicine Cardiovascular Disease
DX: I71.010 Dissection of ascending aorta (principal)
CPT/HCPCS: 71260; Q9967

== ENCOUNTER → 2024-01-09 | Outpatient (CLI) | payer MEDICARE ==
[~2024-01-09] MED LIST changes: -ISOVUE-370 76% 100ML VIAL As Ordered ONE
== END ==
LOC: M PLAIMG 09:40
PROVIDERS: ATTEND Physician Assistant
DX: I35.0 Nonrheumatic aortic (valve) stenosis (principal); Z95.4 Presence of other heart-valve replacement

== ENCOUNTER → 2024-11-11 | Outpatient (CLI) | payer MEDICARE ==
[~2024-11-11] MED LIST changes: -ROSU40TA4 PO; +ROSU40TA81 PO
== END ==
LOC: M CARPUL 11:03
PROVIDERS: ATTEND Physician Assistant
DX: I35.0 Nonrheumatic aortic (valve) stenosis (principal); Z95.4 Presence of other heart-valve replacement; I31.39 Other pericardial effusion (noninflammatory)

== ENCOUNTER → 2025-07-14 | Outpatient (CLI) | payer MEDICARE ==
[~2025-07-14] MED LIST changes: +CARV6.25; +JARD1TAB3 PO; +MIRA3350 PO; +SEMA0.257 SQ
[2025-07-14 16:34] LABS: CALCIUM LEVEL 10.1 MG/DL (8.3-10.6); CARBON DIOXIDE LEVEL 25.0 MMOL/L (20-31); CHLORIDE LEVEL 102.0 MMOL/L (98-107); CREATININE FOR GFR 1.96 MG/DL (0.70-1.30); GLOMERULAR FILTRATION RATE 33.7 (>35); POTASSIUM SERUM 4.2 MMOL/L (3.5-5.1); SODIUM LEVEL 137.0 MMOL/L (136-145)
== END ==
LOC: M LAB 15:11
PROVIDERS: ATTEND Physician Assistant
DX: I11.9 Hypertensive heart disease without heart failure (principal)

== ENCOUNTER → 2025-08-04 | Outpatient (CLI) | payer MEDICARE ==
[2025-08-04 10:31] LABS: CALCIUM LEVEL 9.6 MG/DL (8.3-10.6); CARBON DIOXIDE LEVEL 26.0 MMOL/L (20-31); CHLORIDE LEVEL 104.0 MMOL/L (98-107); CREATININE FOR GFR 1.46 MG/DL (0.70-1.30); GLOMERULAR FILTRATION RATE 48.0 (>35); POTASSIUM SERUM 4.2 MMOL/L (3.5-5.1); SODIUM LEVEL 141.0 MMOL/L (136-145)
== END ==
LOC: M LAB 08:58
PROVIDERS: ATTEND Physician Assistant
DX: I11.9 Hypertensive heart disease without heart failure (principal)

== ENCOUNTER → 2025-09-13 | Outpatient (CLI) | payer MEDICARE ==
[2025-09-13 10:23] LABS: CALCIUM LEVEL 9.9 MG/DL (8.3-10.6); CARBON DIOXIDE LEVEL 28.0 MMOL/L (20-31); CHLORIDE LEVEL 103.0 MMOL/L (98-107); CREATININE FOR GFR 1.3 MG/DL (0.70-1.30); GLOMERULAR FILTRATION RATE 55.2 (>35); POTASSIUM SERUM 4.2 MMOL/L (3.5-5.1); SODIUM LEVEL 142.0 MMOL/L (136-145)
== END ==
LOC: M LAB 08:36
PROVIDERS: ATTEND Physician Assistant
DX: I11.9 Hypertensive heart disease without heart failure (principal)